=== PATIENT | male | born 1925 | race Caucasian/White ===

== ENCOUNTER 2016-07-11 08:00 | Outpatient (CLI) | payer MEDICARE, OTHER | END 2016-07-11 08:01 | disposition home or self-care (01) | DX: I42.0 Dilated cardiomyopathy (principal); R68.89 Other general symptoms and signs; R94.6 Abnormal results of thyroid function studies; E61.2 Magnesium deficiency ==

== ENCOUNTER 2016-07-15 10:15 | Outpatient (CLI) | payer MEDICARE, OTHER | END 2016-07-15 10:16 | disposition home or self-care (01) | DX: Z51.5 Encounter for palliative care (principal); K59.00 Constipation, unspecified; C68.0 Malignant neoplasm of urethra; R63.4 Abnormal weight loss; R58 Hemorrhage, not elsewhere classified; D64.9 Anemia, unspecified; H91.90 Unspecified hearing loss, unspecified ear; R41.89 Other symptoms and signs involving cognitive functions and awareness; R32 Unspecified urinary incontinence; D18.01 Hemangioma of skin and subcutaneous tissue; Z66 Do not resuscitate ==

== ENCOUNTER 2016-08-26 10:29 | Outpatient (CLI) | payer MEDICARE, OTHER ==
--- NOTE | 2016-08-27 08:41 | CONSULTATION NOTE ---
DATE OF CONSULTATION: 08/26/2016 00:00:00 REQUESTING PROVIDER: Claudio Camacho MD TIME OF VISIT: 1030 to 11 a.m. TOPIC: Followup palliative care consult. Thank you, Dr. Camacho, for asking the palliative care consultation service to follow up with this reagan ent and be involved. The patient was discharged from hospice at the end of May 2016, and has resume d care with his primary care doctor, Dr. Constantino Rojas, oversight at [facility]. The patient is seen at [facility], which is his permanent residence. 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 He remains vane rly stabilized as far as his cancer. He has had no further hematuria or weight loss. His appetite has been good. No change in his functional status. I got a call from his son Charles regarding concern ab t he had been contacted about workup and treatment as the patient had a productive cough, low-grade f ever, and was more lethargic. There is a viral illness going around at the facility. The patient actu ally has been improving over the last couple of days. On presentation, he does have a loose moist cou gh, but his breath sounds are diminished but clear. No wheezing, rhonchi, or crackles. He denies any breathlessness his O2 saturation on room air are 95%. The nurse reports he did eat breakfast well thi s morning, and he often does spend quite a bit of time in bed, but was interactive with staff. He was having his nap, he was somewhat difficult to arouse, but when awakened was interactive and did parti cipate in the exam, but is not as verbal as he had been on previous visit. He does appear somewhat pa le, remains quite hard of hearing and needing to use his amplifier, but denies any distress. I had, previous to my visit, spoken to his son Charles regarding his concern about deviating from the g oals. He is quite clear for his father that the goal is COMFORT MEASURES ONLY with focus on relieving any suffering or any distress, but no active intervention or workup as far as chest x-rays or antibi otics. SYMPTOM BURDEN: The patient denies any pain. His appetite had diminished but has improved today. Staf f did not perceive him as depressed or anxious, and overall he is quite settled into his routine and life there at [facility]. CODE STATUS: THE PATIENT IS A DO NOT ATTEMPT RESUSCITATION, COMFORT MEASURES ONLY, NO TUBE FEEDINGS, DETERMINE USE OR LIMITATION OF ANTIBIOTICS WITH THE GOAL FOR COMFORT AND TO AVOID HOSPITALIZATION. REVIEW OF SYSTEMS: This is somewhat limited by patient's hearing and cognitive deficits. Please see a anam as included in Brief History. The patient denies chest pain or shortness of breath. Reports food is okay. He continues to be incontinent of urine, no documented recent hematuria. No current skin br eakdown. The patient is mostly wheelchair bound. 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 PHYSICAL EXAMINATION GENERAL APPEARANCE: The patient does appear pale, frail, and fragile. It is unclear if he recognized me today. 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 No redness or tenderness though it does obscure his vision some. ENT: His mucous membranes are moist. NECK: Trachea midline, no JVD. RESPIRATORY: As noted above. VITAL SIGNS: His temperature was 96.2, pulse 64 with a significant murmur, blood pressure 142/64. ABDOMEN: Soft, flat, nontender with deep palpation. No bladder distention noted. SKIN: No skin breakdown noted. Heels clear. Coccyx clear. EXTREMITIES: No lower extremity edema. Very difficult and stiff when getting from sitting to standing . He is unable to assist. PALLIATIVE CARE DISCUSSION: Who is present, the patient and myself. The patient has no complaints. Romaine maries somewhat perplexed at suggestion that he might be ill. Does not appear in any acute distress. H e does have a rolling cough, but does not seem to be bothersome either to him. On followup with Charles, the patient currently does not meet the threshold for hospice criteria. He mathis s had no significant weight loss. He remains fairly weight neutral, maybe down a pound or two this week at 131.4. Last month at about the same time he was 133.7. He does get up for meals. He does s leep quite a bit, but this is not a change from baseline, and he has no progressive signs of his canc er as far as hematuria and does not present with an acute infection that would add to his demise. The agreement as far as the plan was is we would treat his cough, assuming this is a viral illness. If h e were to worsen, we can reevaluate. Son reiterated his goals of no treatment and keeping him comfort able only. IMPRESSION: This is an 89-year-old gentleman who presents with viral illness, upper respiratory, that does appear to be improving. No symptoms of progressive decline attributed to his cancer. His care n eeds are being met at the facility and his son reiterated his goals for focusing on comfort measures only. RECOMMENDATIONS/COUNSELING DONE 1. Papillary urethral bladder cancer. The patient is not currently having active bleeding. He continu es to appear fragile but no eminent decline. I did review with the son goals of care, which is to foc us on comfort and no further workup or referrals to specialists at this time. 2. 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 He has continued to be supported by the volunteer on a r egular basis. He had one episode of agitation reported by the staff, otherwise he is quite cooperativ e and has no neuropsychiatric symptoms as far as wandering, agitation or anxiety. 3. Upper respiratory infection. Does appear to be viral at this point in time and I will go ahead and order him some Tussin-DM for his cough. Otherwise, will continue to monitor for further complication s or sequelae of this. It does appear from impressions from staff, as well as on examination, that he is improving over the last few days. 4. Constipation. Had titrated up his bowel program our last visit. This appears to have addressed his issues with constipation. 5. Advanced care planning. Did reiterate with staff focus on comfort measures and the goal is to torres sition him back to hospice as needed to include minimal invasive procedures such as labs, hospitaliza tion and/or treatment. TIME SPENT: Thirty minutes with greater than 50% of this done in coordination of care clarifying goal s, anticipatory guidance with his son, as well as evaluating current acute illness and treatment plan with staff. JOB #: [id number] EXT JOB #:[id number]
== END 2016-08-26 10:30 | disposition home or self-care (01) ==
LOC: PC 10:29
PROVIDERS: ATTEND Nurse Practitioner Adult Health
DX: Z51.5 Encounter for palliative care (principal); C68.0 Malignant neoplasm of urethra; F03.90 Unspecified dementia, unspecified severity, without behavioral disturbance, psychotic disturbance, mood disturbance, and anxiety; J06.9 Acute upper respiratory infection, unspecified; K59.00 Constipation, unspecified; R05 Cough; Z66 Do not resuscitate; R41.89 Other symptoms and signs involving cognitive functions and awareness; R32 Unspecified urinary incontinence; Z99.3 Dependence on wheelchair; M24.562 Contracture, left knee; M24.561 Contracture, right knee; M24.552 Contracture, left hip; M24.551 Contracture, right hip
CPT/HCPCS: 99309